=== PATIENT | male | born 1985 | race Caucasian/White ===

== ENCOUNTER 2021-04-10 20:52 | Emergency (ER) | payer SELFPAY ==
[~2021-04-10] VITALS: Ht 188 cm; Wt 141.8 kg
[2021-04-10 20:55] VITALS: Ht 188 cm; Wt 141.8 kg
[2021-04-10] MEDS ORDERED: CLARITIN 10 MG10 MG PO (21:19)
[2021-04-10] MEDS ORDERED: NASONEX NASAL S17 GM NS (21:19)
[2021-04-10] MEDS ORDERED: MEDROL DOSE PACK4 MG PO (21:19)
[2021-04-10 21:38] VITALS: BP 152/97
== END 2021-04-10 21:38 | disposition home or self-care (01) ==
LOC: D.ER 20:52
DX: J32.9 Chronic sinusitis, unspecified (principal); J06.9 Acute upper respiratory infection, unspecified; R06.02 Shortness of breath; R51.9 Headache, unspecified; R53.81 Other malaise

== ENCOUNTER 2021-04-12 15:51 | Emergency (ER) | payer SELFPAY ==
[~2021-04-12] VITALS: Ht 188 cm; Wt 141.8 kg
[~2021-04-12 15:51] MED LIST: CLARITIN 10 MG10 MG PO; MEDROL DOSE PACK4 MG PO; NASONEX NASAL S17 GM NS
[2021-04-12 16:10] VITALS: Ht 188 cm; Wt 141.8 kg
[2021-04-12] MEDS ORDERED: MELATONIN5 MG PO (16:13)
[2021-04-12 18:08] VITALS: BP 144/87
[2021-04-12] MEDS ORDERED: MUCINEX DM ER1 EAC1 PO (18:49)
== END 2021-04-12 19:00 | disposition home or self-care (01) ==
LOC: D.ER 15:51
DX: R05 Cough (principal); R53.81 Other malaise; M79.10 Myalgia, unspecified site; T50.B95A Adverse effect of other viral vaccines, initial encounter

== ENCOUNTER 2021-04-21 13:09 | Emergency (ER) | payer SELFPAY ==
[~2021-04-21] VITALS: Ht 188 cm; Wt 140.9 kg
[~2021-04-21 13:09] MED LIST changes: +MELATONIN5 MG PO; +MUCINEX DM ER1 EAC1 PO
[2021-04-21 13:23] VITALS: Ht 188 cm; Wt 140.9 kg
[2021-04-21 16:33] VITALS: BP 136/69
[2021-04-21 18:36] LABS: BASOPHILS 1.4 % (0-2); EOSINOPHILS 1.5 % (0-7); HEMATOCRIT 47.6 % (42.0-54.0); HEMOGLOBIN 15.8 g/dL (13.5-17.5); LYMPHOCYTES 30.2 % (15-50); MCH 29.3 pg (26.0-34.0); MCHC 33.1 g/dL (31.0-37.0); MCV 88.6 fL (80.0-100.0); MONOCYTES 6.8 % (2-11); NEUTROPHILS 60.1 % (40-80); PLATELET COUNT 286 10x3/uL (130-400); RBC 5.38 10x6/uL (4.20-6.10); RDW 13.9 % (11.5-14.5); WBC 8.5 10x3/uL (4.8-10.8)
[2021-04-21 18:42] LABS: CALC OSMOLALITY 279 mosm/kg (275-300); CALCIUM 8.7 mg/dL (8.5-10.1); CARBON DIOXIDE 27.9 mmol/L (21.0-32.0); CHLORIDE - SERUM 103 mmol/L (98-107); GLUCOSE 93 mg/dL (74-106); SODIUM 140 mmol/L (136-145); UREA NITROGEN 16 mg/dL (7-18); eGFR NON AFRICAN AMERICAN 90 mL/min (90-120)
[2021-04-21 18:49] LABS: ALBUMIN 4.1 g/dL (3.4-5.0); ALKALINE PHOSPHATASE 82 U/L (30-120); ALT (SGPT) 29 U/L (10-68); BILIRUBIN - TOTAL 0.71 mg/dL (0.2-1.3); C-REACTIVE PROTEIN 0.6 mg/dL (0.0-0.9); PROTEIN - SERUM 8.1 g/dL (6.4-8.2)
[2021-04-21 18:50] LABS: BILIRUBIN NEGATIVE (NEGATIVE); KETONE NEGATIVE (NEGATIVE); NITRITE NEGATIVE (NEGATIVE); UROBILINOGEN NORMAL mg/dL (< 2)
[2021-04-21] MEDS ORDERED: VISTARIL25 MG PO (19:56)
== END 2021-04-21 20:15 | disposition home or self-care (01) ==
LOC: D.ER 13:09
PROVIDERS: Emergency Medicine
DX: R53.81 Other malaise (principal); F41.9 Anxiety disorder, unspecified; R41.0 Disorientation, unspecified; T50.B95A Adverse effect of other viral vaccines, initial encounter; R11.0 Nausea; M54.5 Low back pain; I10 Essential (primary) hypertension

== ENCOUNTER 2021-06-02 14:03 | Emergency (ER) | payer SELFPAY ==
[~2021-06-02] VITALS: Ht 188 cm; Wt 140.9 kg
[~2021-06-02 14:03] MED LIST changes: +VISTARIL25 MG PO
[2021-06-02 14:42] VITALS: BP 132/78; Ht 188 cm; Wt 140.9 kg
[2021-06-02 15:45] LABS: SARS-CoV-2 ANTIGEN POSITIVE- SARS-COV-2 (NEGATIVE)
[2021-06-02] MEDS ORDERED: DECADRON4 MG PO (17:05)
[2021-06-02] MEDS ORDERED: AMBIEN10 MG PO (17:05)
== END 2021-06-02 17:45 | disposition home or self-care (01) ==
LOC: D.ER 14:03
PROVIDERS: Emergency Medicine
DX: U07.1 COVID-19 (principal); R05 Cough; G47.00 Insomnia, unspecified